=== PATIENT | female | born 1950 | race Caucasian/White ===

== ENCOUNTER 2017-01-24 10:57 | Day surgery (SDC) | payer OTHER ==
--- NOTE | 2017-01-24 12:42 | Operative Note ---
Colonoscopy ([facility]) Procedure date: 01/24/17 Date of : 54 Procedure:Colonoscopy Colonoscopy with cold snare polypectomy Indications: Mrs. Montague is a 66-year-old female who is here for follow-up screening/ surveillance colonoscopy. She did have initial screening colonoscopy in November 2003 which was normal. She did have some chronic constipation which improved after doing acupuncture. She reports no abdominal pain, weight loss, change in her bowel habits or rectal bleeding. She reports no family history of colon cancer. Performing Provider: Wilfred Bobo MD Referrring Provider: Erick Cruz M.D. Sedation: Fentanyl 150 mg IV/Versed 9 mg IV Procedure: Prior to the procedure, a history and physical exam was performed, and patient medications and allergies were reviewed. The risks and benefits of the procedure and the sedation options and risks were discussed with the patient. All questions were answered and informed consent was obtained. Patient identification and proposed procedure were verified by the physician and the nurse. The patient was placed in a left lateral decubitus position. Throughout the procedure, the patient's blood pressure, pulse, and oxygen saturations were monitored continuously. Findings: On digital rectal examination there was normal rectal tone. There were no external hemorrhoids. The colonoscope was introduced through the anal canal to the rectum and advanced to the cecum. The ileocecal valve and appendiceal orifice were identified. The scope was advanced a short distance into the ileum which appeared grossly normal. The scope was then withdrawn into the colon. The cecum, ascending, transverse, descending, sigmoid and rectum were grossly normal. There was a single 6 mm polyp in the descending colon removed via cold snare polypectomy. There was moderate colonic redundancy suggestive of some colonic dysmotility. There were no mucosal abnormalities identified. Upon retroflexion within the rectum there were grade 1 internal hemorrhoids. Impressions: 1. Descending colon polyp 2. Colonic redundancy 3. Grade 1 internal hemorrhoids Recommendations: I will follow up the polyp pathology and recommend repeat colonoscopy again in 5 -10 years based upon the polyp histology. I would encourage probiotics and fiber bulk supplementation on a long-term daily maintenance basis. Complications: None EBL (ml): 0 at 1242
[2017-01-24 13:51] VITALS: BP 136/76
== END 2017-01-24 13:45 | disposition home or self-care (01) ==
LOC: SDC 10:57
PROVIDERS: Internal Medicine Gastroenterology
PROC: 0DBM8ZX Excision of Descending Colon, Via Natural or Artificial Opening Endoscopic, Diagnostic (ICD-10-PCS; principal; 2017-01-24 11:30)
DX: Z12.11 Encounter for screening for malignant neoplasm of colon (principal); K63.5 Polyp of colon; Q43.8 Other specified congenital malformations of intestine; K64.0 First degree hemorrhoids